=== PATIENT | male | born 1960 | race American Indian/Alaskan Native ===

== ENCOUNTER 2017-04-06 17:33 | Inpatient (IN) | payer OTHER ==
[2017-04-06 18:50] LABS: Urine Drugs of Abuse Note Disclamer
[2017-04-06 18:58] LABS: Bacteria,Urine 1+ /HPF (Negative); Bilirubin,Urine NEG (Negative); Blood,Urine LG (Negative); Ketones,Urine TR mg/dL (Negative); Leukocyte Esterase,Urine NEG (Negative); Mucus,Urine FEW /HPF; Nitrite,Urine NEG (Negative); Urobilinogen,Urine < 2.0 mg/dL (<2.0)
[2017-04-06 19:04] LABS: Basophils % (Auto) 0.3 % (0.0-1.8); Eosinophils % (Auto) 0.7 % (0.0-4.3); Hematocrit 40.9 % (35.5-45.6); Hemoglobin 14.5 gm/dl (11.8-15.2); Mean Corpuscular HGB Conc 36 % (32-34); Mean Corpuscular Hemoglobin 31 pg (28-32); Mean Corpuscular Volume 88 fl (84-94); Platelet Count 265 K/mm3 (140-440); Red Blood Count 4.67 M/mm3 (3.65-5.03); Red Cell Distribution Width 13.4 % (13.2-15.2); White Blood Count 8.3 K/mm3 (4.5-11.0)
[2017-04-06 19:25] LABS: Alanine Aminotransferase 119 units/L (7-56); Albumin 4.4 g/dL (3.9-5); Albumin/Globulin Ratio 1.6 %; Alkaline Phosphatase 101 units/L (35-129); Anion Gap 18 mmol/L; BUN/Creatinine Ratio 21; Blood Urea Nitrogen 19 mg/dL (9-20); Calcium 9.1 mg/dL (8.4-10.2); Carbon Dioxide 28 mmol/L (22-30); Chloride 92.2 mmol/L (98-107); Glucose 103 mg/dL (75-100); Potassium 3.7 mmol/L (3.6-5.0); Sodium 134 mmol/L (137-145); Total Protein 7.1 g/dL (6.3-8.2)
[2017-04-06] MEDS ORDERED: VITAMIN B-1 100 MG, FOLVITE 1 MG, INFUVITE 10 ML in NACL 0.9% 1000 ML 1,000 ML IV ONE (20:27)
[2017-04-06 20:55] LABS: Magnesium 2.3 mg/dL (1.7-2.3)
--- NOTE | 2017-04-06 21:10 | Emergency Department Report ---
ED Abdominal Pain HPI - General Chief Complaint: Abdominal Pain Stated Complaint: NO URINATION X 2 DAYS Time Seen by Provider: 04/06/17 20:13 Source: patient Mode of arrival: Ambulatory Limitations: No Limitations - History of Present Illness Initial Comments: 56 yo male with a past medical history hypertension, enlarged prostate, and substance abuse presents to Hospital complaining of pelvic pressure difficulty urinating for 2 days. Patient did not know he had a history of enlarged prostate but does note he takes Flomax due to difficulty urinating. Over the last 6-8 months patient has been on alcohol and drug binge with most recent use of alcohol and cocaine today prior to arrival. Patient admits to daily alcohol use but denies history of all, which alternates her seizures. Poor food intake reported over the last couple days. Patient had immediate relief of suprapubic pressure after Honeycutt was placed prior to my arrival. Initial output of 600 mL' s of urine. Severity scale (0 -10): 0 - Related Data Home Medications Medication Instructions Recorded Confirmed Last Taken Lisinopril/Hydrochlorothiazide 1 tab PO QDAY 04/06/17 04/06/17 04/03/17 [Zestoretic 20-25 mg] Tamsulosin [Flomax] 0.4 mg PO QDAY 04/06/17 04/06/17 04/03/17 traZODone [Desyrel] 100 mg PO QHS 04/06/17 04/06/17 04/03/17 Allergies Allergy/AdvReac Type Severity Reaction Status Date / Time No Known Allergies Allergy Verified 04/06/17 20:29 ED Review of Systems ROS: Stated complaint: NO URINATION X 2 DAYS Other details as noted in HPI Comment: All other systems reviewed and negative Other: Constitutional: No fevers chills Eyes: No eye pain visual changes or discharge ENT: No ear pain or throat pain Neck: Denies pain Respiratory: Denies cough wheezing shortness of breath Cardiovascular: Denies chest pain, palpitations, syncope GI: Denies nausea, vomiting, diarrhea : as per hpi Musculoskeletal: Denies back pain, joint swelling Skin: Denies rash, lesions, erythema Neurologic: Denies headache, numbness, weakness Psychiatric: Denies suicidal ideation, hallucinations ED Past Medical Hx - Past Medical History Hx Hypertension: Yes Additional medical history: enlarged prostate - Social History Smoking Status: Former Smoker Substance Use Type: Alcohol, Cocaine - Medications Home Medications: Home Medications Medication Instructions Recorded Confirmed Last Taken Type Lisinopril/Hydrochlorothiazide 1 tab PO QDAY 04/06/17 04/06/17 04/03/17 History [Zestoretic 20-25 mg] Tamsulosin [Flomax] 0.4 mg PO QDAY 04/06/17 04/06/17 04/03/17 History traZODone [Desyrel] 100 mg PO QHS 04/06/17 04/06/17 04/03/17 History ED Physical Exam - General Limitations: No Limitations - Other Other exam information: General: No limitations, patient is alert in no acute distress Head exam: Atraumatic, normocephalic Eyes exam: Normal appearance, pupils equal reactive to light, extraocular movements intact ENT: Moist mucous membrane, normal oropharynx Neck exam: Normal inspection, full range of motion, no meningismus nontender Respiratory exam: Clear to auscultation bilateral, no wheezes, rales, crackles Cardiovascular: Normal rate and rhythm, normal heart sounds Abdomen: Soft, nondistended, and nontender, with normal bowel sounds, no rebound, or guarding : No penile lesions, uncircumcised, Extremity: Full range of motion normal inspection no deformity Back: Normal Inspection, full range of motion, no tenderness Neurologic: Alert, oriented x3, cranial nerves intact, no motor or sensory deficit Psychiatric: normal affect, normal mood Skin: Warm, dry, intact ED Course Vital Signs 04/06/17 04/06/17 17:40 21:06 Temperature 98.4 F Pulse Rate 97 H 71 Respiratory 18 16 Rate Blood Pressure 91/46 Blood Pressure 137/83 [Left] O2 Sat by Pulse 97 98 Oximetry ED Medical Decision Making - Lab Data Result diagrams: 04/06/17 18:54 04/06/17 18:54 Lab Results 04/06/17 04/06/17 04/06/17 Range/Units 18:46 18:54 18:54 WBC 8.3 (4.5-11.0) K/mm3 RBC 4.67 (3.65-5.03) M/mm3 Hgb 14.5 (11.8-15.2) gm/dl Hct 40.9 (35.5-45.6) % MCV 88 (84-94) fl MCH 31 (28-32) pg MCHC 36 H (32-34) % RDW 13.4 (13.2-15.2) % Plt Count 265 (140-440) K/mm3 Lymph % (Auto) 15.0 (13.4-35.0) % [place] % (Auto) 8.2 H (0.0-7.3) % Eos % (Auto) 0.7 (0.0-4.3) % Baso % (Auto) 0.3 (0.0-1.8) % Lymph # 1.2 (1.2-5.4) K/mm3 [place] # 0.7 (0.0-0.8) K/mm3 Eos # 0.1 (0.0-0.4) K/mm3 Baso # 0.0 (0.0-0.1) K/mm3 Seg Neutrophils % 75.8 H (40.0-70.0) % Seg Neutrophils # 6.3 (1.8-7.7) K/mm3 Sodium 134 L (137-145) mmol/L Potassium 3.7 (3.6-5.0) mmol/L Chloride 92.2 L (98-107) mmol/L Carbon Dioxide 28 (22-30) mmol/L Anion Gap 18 mmol/L BUN 19 (9-20) mg/dL Creatinine 0.9 (0.8-1.5) mg/dL Estimated GFR > 60 ml/min BUN/Creatinine Ratio 21 % Glucose 103 H (75-100) mg/dL Calcium 9.1 (8.4-10.2) mg/dL Magnesium (1.7-2.3) mg/dL Total Bilirubin 0.80 (0.1-1.2) mg/dL AST 314 H (5-40) units/L ALT 119 H (7-56) units/L Alkaline Phosphatase 101 (35-129) units/L Total Creatine Kinase (55-170) units/L Total Protein 7.1 (6.3-8.2) g/dL Albumin 4.4 (3.9-5) g/dL Albumin/Globulin Ratio 1.6 % Urine Color Yellow (Yellow) Urine Turbidity Clear (Clear) Urine pH 6.0 (5.0-7.0) Ur Specific [place] 1.021 (1.003-1.030) Urine Protein 100 mg/dl (Negative) mg/dL Urine Glucose (UA) Neg (Negative) mg/dL Urine Ketones Tr (Negative) mg/dL Urine Blood Lg (Negative) Urine Nitrite Neg (Negative) Urine Bilirubin Neg (Negative) Urine Urobilinogen < 2.0 (<2.0) mg/dL Ur Leukocyte Esterase Neg (Negative) Urine WBC (Auto) 3.0 (0.0-6.0) /HPF Urine RBC (Auto) 2.0 (0.0-6.0) /HPF Urine Bacteria (Auto) 1+ (Negative) /HPF Urine Mucus Few /HPF 04/06/17 Range/Units 18:54 WBC (4.5-11.0) K/mm3 RBC (3.65-5.03) M/mm3 Hgb (11.8-15.2) gm/dl Hct (35.5-45.6) % MCV (84-94) fl MCH (28-32) pg MCHC (32-34) % RDW (13.2-15.2) % Plt Count (140-440) K/mm3 Lymph % (Auto) (13.4-35.0) % [place] % (Auto) (0.0-7.3) % Eos % (Auto) (0.0-4.3) % Baso % (Auto) (0.0-1.8) % Lymph # (1.2-5.4) K/mm3 [place] # (0.0-0.8) K/mm3 Eos # (0.0-0.4) K/mm3 Baso # (0.0-0.1) K/mm3 Seg Neutrophils % (40.0-70.0) % Seg Neutrophils # (1.8-7.7) K/mm3 Sodium (137-145) mmol/L Potassium (3.6-5.0) mmol/L Chloride (98-107) mmol/L Carbon Dioxide (22-30) mmol/L Anion Gap mmol/L BUN (9-20) mg/dL Creatinine (0.8-1.5) mg/dL Estimated GFR ml/min BUN/Creatinine Ratio % Glucose (75-100) mg/dL Calcium (8.4-10.2) mg/dL Magnesium 2.30 (1.7-2.3) mg/dL Total Bilirubin (0.1-1.2) mg/dL AST (5-40) units/L ALT (7-56) units/L Alkaline Phosphatase (35-129) units/L Total Creatine Kinase 7455 H (55-170) units/L Total Protein (6.3-8.2) g/dL Albumin (3.9-5) g/dL Albumin/Globulin Ratio % Urine Color (Yellow) Urine Turbidity (Clear) Urine pH (5.0-7.0) Ur Specific [place] (1.003-1.030) Urine Protein (Negative) mg/dL Urine Glucose (UA) (Negative) mg/dL Urine Ketones (Negative) mg/dL Urine Blood (Negative) Urine Nitrite (Negative) Urine Bilirubin (Negative) Urine Urobilinogen (<2.0) mg/dL Ur Leukocyte Esterase (Negative) Urine WBC (Auto) (0.0-6.0) /HPF Urine RBC (Auto) (0.0-6.0) /HPF Urine Bacteria (Auto) (Negative) /HPF Urine Mucus /HPF - Medical Decision Making In the ED patient treated with Honeycutt, banana bag ordered, and normal saline. At admission and acute hepatitis panel, UDS, alcohol level are pending Patient will likely require CIWA protocol during Patient admitted secondary to acute rhabdomyolysis secondary to cocaine abuse but also has other secondary issues that would need further management - Differential Diagnosis urinary retention, UTI, renal failure, alcohol abuse, withdrawal, substance Critical Care Time: No Critical care attestation.: If time is entered above; I have spent that time in minutes in the direct care of this critically ill patient, excluding procedure time. ED Disposition Clinical Impression: Urine retention, Alcohol abuse, LFT elevation, Rhabdomyolysis, Cocaine abuse Disposition: OP ADMIT IP TO THIS HOSP Is pt being admited?: Yes Condition: Stable Time of Disposition: 21:21 (Dr thomas/hosp)
[2017-04-06] MEDS ORDERED: NACL 0.9% 1000 ML 1,000 ML IV ONE (21:19)
[2017-04-06] MEDS ORDERED: ATIVAN IV PRN ×3 (21:35)
--- NOTE | 2017-04-06 22:37 | History and Physical Report ---
History of Present Illness Date of examination: 04/06/17 Date of admission: 04/06/17 21:34 Chief complaint: Difficulty urinating for 2 days History of present illness: Patient is 66-year-old with history of hypertension, prostate enlargement. He presents to the hospital with chief complaint of difficulty inability to urinate for 2 days. He denies any abdominal pain, and denies nausea or vomiting. Patient also has a history of cocaine abuse and used cocaine day before admission. In the Emergency Department, Creatine kinase was 7455. He was therefore diagnosed with acute rhabdomyolysis ,and started on IV fluids. Honeycutt catheter was placed because of urinary retention. He is being admitted for further management. Past History Past Medical History: hypertension, other (BPH) Past Surgical History: No surgical history Social history: alcohol abuse, full code, other (Cocaine abuse). denies: smoking (former smoker) Family history: no significant family history Medications and Allergies Allergies Allergy/AdvReac Type Severity Reaction Status Date / Time No Known Allergies Allergy Verified 04/06/17 20:29 Home Medications Medication Instructions Recorded Confirmed Last Taken Type Lisinopril/Hydrochlorothiazide 1 tab PO QDAY 04/06/17 04/06/17 04/03/17 History [Zestoretic 20-25 mg] Tamsulosin [Flomax] 0.4 mg PO QDAY 04/06/17 04/06/17 04/03/17 History traZODone [Desyrel] 100 mg PO QHS 04/06/17 04/06/17 04/03/17 History Active Meds: Active Medications Lorazepam (Ativan) 2 mg IV Q1HR PRN PRN Reason: CIWA-Ar 8-15 Lorazepam (Ativan) 4 mg IV Q1HR PRN PRN Reason: CIWA-Ar 16-25 Lorazepam (Ativan) 4 mg IV Q15MIN PRN PRN Reason: CIWA-Ar >25 Exam - Physical Exam Narrative exam: Gen Appearance: Not in acute distress, HEENT: normocephalic, atraumatic Neck: supple, no JVD Lungs: Clear to auscultation bilaterally, no rales, no wheezing, Heart: S1 and S2 regular, no murmurs,no rubs or gallop, Abdomen: Soft , non tender, non distended, normal bowel sounds Extremity: No edema, no clubbing, no cyanosis Neuro : Awake,alert, oriented x 3, normal speech, moves all extremities Psych: Normal mood - Constitutional Vitals: Temp Pulse Resp BP Pulse Ox 99.5 F 101 H 18 131/80 96 04/06/17 22:19 04/06/17 22:19 04/06/17 22:19 04/06/17 22:19 04/06/17 22:19 Results - Labs CBC & Chem 7: 04/06/17 18:54 04/06/17 18:54 Assessment and Plan Acute rhabdomyolysis with creatine kinase of 7455. Admit to medical surgical floor. Patient started on IV fluids. Repeat Creatine kinase serially. Urinary retention. This is likely secondary to BPH. Honeycutt catheter inserted. Patient may need urology consultation in the morning. Hypertension. Blood pressure stable. Was on Lisinopril/HCTZ. Resume Lisinopril but hold HCTZ because giving iv fluids and allso has hyponatremia and hypochloremia. Hyponatremia. Started on ivf D5NS Elevated AST and ALT. May be acute hepatitis or from alcohol abuse since AST:ALT > 2:1 Cocaine abuse. I counseled patient on importance of quitting cocaine. DVT prophylaxis: Lovenox Full CODE STATUS.
[2017-04-07] MEDS ORDERED: D5NS 1,000 ML IV SCH (01:00)
[2017-04-07 06:08] LABS: Hematocrit 37.8 % (35.5-45.6); Hemoglobin 13.1 gm/dl (11.8-15.2); Mean Corpuscular HGB Conc 35 % (32-34); Mean Corpuscular Hemoglobin 31 pg (28-32); Mean Corpuscular Volume 89 fl (84-94); Platelet Count 227 K/mm3 (140-440); Red Blood Count 4.24 M/mm3 (3.65-5.03); Red Cell Distribution Width 13.4 % (13.2-15.2); White Blood Count 7.4 K/mm3 (4.5-11.0)
[2017-04-07 06:18] LABS: INR 1.1 (0.87-1.13)
[2017-04-07 06:30] LABS: Alanine Aminotransferase 87 units/L (7-56); Albumin 3.5 g/dL (3.9-5); Albumin/Globulin Ratio 1.6 %; Alkaline Phosphatase 84 units/L (35-129); Anion Gap 17 mmol/L; BUN/Creatinine Ratio 19; Blood Urea Nitrogen 17 mg/dL (9-20); Calcium 8.2 mg/dL (8.4-10.2); Carbon Dioxide 24 mmol/L (22-30); Chloride 101.2 mmol/L (98-107); Glucose 156 mg/dL (75-100); Potassium 3.5 mmol/L (3.6-5.0); Sodium 139 mmol/L (137-145); Total Protein 5.7 g/dL (6.3-8.2)
[2017-04-07 06:57] LABS: Creatine Kinase 3171 units/L (55-170)
[2017-04-07] MEDS ORDERED: ZESTRIL PO SCH (10:00)
[2017-04-07] MEDS ORDERED: HCTZ PO SCH (10:00)
[2017-04-07] MEDS ORDERED: NON-FORMULARY (Lisinopril/Hydrochlorothiazide [Zestoretic 20-25 Mg] 1 TAB) PO SCH (10:00)
[2017-04-07] MEDS ORDERED: FLOMAX PO SCH (10:00)
[2017-04-07] MEDS ORDERED: K-DUR PO ONE (11:00)
--- NOTE | 2017-04-07 16:44 | Discharge Summary ---
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 Primary care physician: ELISA CHAN Hospitalization Condition: Stable Hospital course: Discharge diagnosis and management: Acute rhabdomyolysis with creatine kinase of 7455. Admit to medical surgical floor. Patient started on IV fluids. Repeat Creatine kinase serially. Urinary retention. This is likely secondary to BPH. Honeycutt catheter inserted. Patient may need urology consultation in the morning. Hypertension. Blood pressure stable. Was on Lisinopril/HCTZ. Resume Lisinopril but hold HCTZ because giving iv fluids and allso has hyponatremia and hypochloremia. Hyponatremia. Started on ivf D5NS Elevated AST and ALT. May be acute hepatitis or from alcohol abuse since AST:ALT > 2:1 Cocaine abuse. I counseled patient on importance of quitting cocaine. DVT prophylaxis: Lovenox Disposition: DC-01 TO HOME OR SELFCARE Time spent for discharge: 32 minutes Core Measure Documentation - Palliative Care Palliative Care/ Comfort Measures: Not Applicable - Core Measures Any of the following diagnoses?: none Exam - Constitutional Vitals: Temp Pulse Resp BP Pulse Ox 99.5 F 81 20 132/76 98 04/07/17 11:08 04/07/17 11:16 04/07/17 11:08 04/07/17 11:16 04/07/17 11:08 General appearance: Present: no acute distress, well-nourished - EENT Eyes: Present: PERRL ENT: hearing intact, clear oral mucosa - Neck Neck: Present: supple, normal ROM - Respiratory Respiratory effort: normal Respiratory: bilateral: CTA - Cardiovascular Heart Sounds: Present: S1 & S2. Absent: rub, click - Extremities Extremities: pulses symmetrical, No edema Peripheral Pulses: within normal limits - Abdominal General gastrointestinal: Present: soft, non-tender, non-distended, normal bowel sounds - Integumentary Integumentary: Present: clear, warm, dry - Musculoskeletal Musculoskeletal: gait normal, strength equal bilaterally - Psychiatric Psychiatric: appropriate mood/affect, intact judgment & insight - Neurologic Neurologic: CNII-XII intact, moves all extremities Plan Activity: advance as tolerated Weight Bearing Status: Weight Bear as Tolerated Diet: low fat, low salt Follow up with: ELISA CHAN MD [Primary Care Provider] - 7 Days
[2017-04-07 17:17] VITALS: BP 107/65
[2017-04-07] MEDS ORDERED: DESYREL PO SCH (22:00)
== END 2017-04-07 18:16 | disposition home or self-care (01) | DRG 558 ==
LOC: ED 17:33 → 3A 21:34
PROVIDERS: ADMIT Internal Medicine; ATTEND Internal Medicine
DX: M62.82 Rhabdomyolysis (principal); E87.1 Hypo-osmolality and hyponatremia; F10.10 Alcohol abuse, uncomplicated; F14.10 Cocaine abuse, uncomplicated; R79.89 Other specified abnormal findings of blood chemistry; I10 Essential (primary) hypertension; R33.8 Other retention of urine; N40.1 Benign prostatic hyperplasia with lower urinary tract symptoms; K70.10 Alcoholic hepatitis without ascites; Z71.51 Drug abuse counseling and surveillance of drug abuser; E87.8 Other disorders of electrolyte and fluid balance, not elsewhere classified; Z79.899 Other long term (current) drug therapy; Z87.891 Personal history of nicotine dependence
CPT/HCPCS: 36415; 80053; 80074; 80307; 80320; 81001; 82550; 83735; 85025; 85027; 85610; 99406; G0480; J3411; J7030; J7042